=== PATIENT | female | born 1980 | race Hispanic/Latino ===

== ENCOUNTER 2017-12-05 01:48 | Emergency (ER) | payer SELFPAY ==
[2017-12-05 01:54] VITALS: BP 108/74; PULSE 98; TEMP 98.1; BMI 18.8
[2017-12-05 01:58] VITALS: RESP 18; O2SAT 97
--- NOTE | 2017-12-05 02:19 | ED PDOC ---
Arrival/HPI - General Chief Complaint: ENT Problem Time Seen by Provider: 12/05/17 01:52 Historian: Patient - History of Present Illness Narrative History of Present Illness (Text): 12/05/17 02:00 Yoly Narayanan is a 36 year old female, who presents to the emergency department complaining of injury and pain to her nose since prior to arrival. Patient reports she got hit in the nose with a door and notes it is swollen. No other complaints were made. Time/Duration: Prior to Arrival Symptom Onset: Sudden Symptom Course: Unchanged Activities at Onset: Light Past Medical History - Provider Review Nursing Documentation Reviewed: Yes - Cardiac Hx Cardiac Disorders: No - Pulmonary Hx Respiratory Disorders: No - Neurological Hx Neurological Disorder: No - HEENT Hx HEENT Disorder: No - Renal Hx Renal Disorder: No - Endocrine/Metabolic Hx Endocrine Disorders: No - Hematological/Oncological Hx Blood Disorders: No - Integumentary Hx Dermatological Disorder: No - Gastrointestinal Hx Gastrointestinal Disorders: No - Genitourinary/Gynecological Hx Genitourinary Disorders: No - Psychiatric Hx Psychophysiologic Disorder: No Hx Substance Use: No - Surgical History Hx Section: Yes (2009) - Suicidal Assessment Feels Threatened In Home Enviroment: No Family/Social History - Physician Review Nursing Documentation Reviewed: Yes Family/Social History: Unknown Family HX Smoking Status: Heavy Smoker > 10 Cigarettes Daily Hx Alcohol Use: Yes Hx Substance Use: No Allergies/Home Meds Allergies/Adverse Reactions: Allergies No Known Allergies Allergy (Verified 12/05/17 01:54) Home Medications: Home Meds Medication Instructions Recorded Confirmed ALPRAZolam [Xanax] 1 mg PO PRN PRN 12/05/17 12/05/17 Dextroamphetamine/Amphetamine 30 mg PO DAILY 12/05/17 12/05/17 [Adderall 30 mg Tablet] Review of Systems - Physician Review All systems were reviewed & negative as marked: Yes - Review of Systems Constitutional: absent: Fevers ENT: Other (nose pain s/p getting hit with a door) Respiratory: absent: SOB Cardiovascular: absent: Chest Pain Physical Exam Vital Signs Reviewed: Yes Vital Signs Temp Pulse Resp BP Pulse Ox 12/05/17 01:55 98.1 F 98 H 18 108/74 97 12/05/17 01:53 98.1 F 98 H 20 108/74 96 Temperature: Afebrile Blood Pressure: Normal Pulse: Tachycardic Respiratory Rate: Normal Appearance: Positive for: Well-Appearing, Non-Toxic, Comfortable Pain Distress: None Mental Status: Positive for: Alert and Oriented X 3 - Systems Exam Head: Present: Atraumatic, Normocephalic Pupils: Present: PERRL Extroacular Muscles: Present: EOMI Conjunctiva: Present: Normal Mouth: Present: Moist Mucous Membranes Nose (External): Present: Laceration (2mm laceration on bridge of nose), Other ( swelling on bridge of nose). No: Atraumatic Nose (Internal): No: No Active Bleeding, Epistaxis Cardiovascular: Present: Regular Rate and Rhythm, Normal S1, S2. No: Murmurs Upper Extremity: Present: Normal Inspection. No: Cyanosis, Edema Lower Extremity: Present: Normal Inspection. No: Edema Neurological: Present: GCS=15, CN II-XII Intact, Speech Normal Skin: Present: Warm, Dry, Normal Color. No: Rashes Psychiatric: Present: Alert, Oriented x 3, Normal Insight, Normal Concentration Medical Decision Making ED Course and Treatment: 12/05/17 Impression: 36 year old female with 2mm laceration and swelling on bridge of nose. Plan: -- Nasal bone x-ray -- Labs -- Zithromax -- Reassess and disposition Progress Notes: - Lab Interpretations I have reviewed the lab results: Yes - RAD Interpretation Radiology Orders: 12/05/17 02:30 NASAL BONES [RAD] Stat Oceanologist: Radiologist - Medication Orders Current Medication Orders: Discontinued Medications Acetaminophen (Tylenol 325mg Tab) 650 mg PO STAT STA Stop: 12/05/17 03:08 Last Admin: 12/05/17 03:14 Dose: 650 mg MAR Pain/Vitals Document 12/05/17 03:14 SS (Rec: 12/05/17 03:14 SS [id number]) Pain Reassessment Is This A Pain ReAssessment? No Sleep Is patient sleeping during reassessment? No Presence of Pain Presence of Pain No Azithromycin (Zithromax) 500 mg PO ONCE STA PRN Reason: Protocol Stop: 12/05/17 02:32 Last Admin: 12/05/17 02:48 Dose: 500 mg Procedure: Wound Repair - Consent Obtained Consent obtained: Verbal - Performed by Performed by: Attending Physician - Location Location:: Nose Shape:: Linear Dimensions Length cm: 4mm - Debris Debris:: None - Wound repair method Nasreen:: Tissue glue - Muscle repiar layer closed with Muscle repair layer closed with:: Wound well approximated - Patient tolerated procedure Patient Tolerated Procedure:: Well - Scribe Statement The provider has reviewed the documentation as recorded by the Scribe Juany Peralta Provider Scribe Attestation: All medical record entries made by the Scribe were at my direction and personally dictated by me. I have reviewed the chart and agree that the record accurately reflects my personal performance of the history, physical exam, medical decision making, and the department course for this patient. I have also personally directed, reviewed, and agree with the discharge instructions and disposition. Disposition/Present on Arrival - Present on Arrival Any Indicators Present on Arrival: No History of DVT/PE: No History of Uncontrolled Diabetes: No Urinary Catheter: No History of Decub. Ulcer: No History Surgical Site Infection Following: None - Disposition Have Diagnosis and Disposition been Completed?: Yes Diagnosis: Laceration of nose, Nasal fracture Disposition: HOME/ ROUTINE Disposition Time: 03:35 Condition: GOOD Discharge Instructions (ExitCare): Nasal Fracture (ED), Laceration (ED) Additional Instructions: follow up with ent Prescriptions: Benzonatate [Tessalon Perles] 100 mg PO TID #12 sgl Azithromycin [Zithromax] 250 mg PO DAILY #4 tab Referrals: Cm Major DO [Staff Provider] - Follow up with primary Forms: [employer] ([place])
--- NOTE | 2017-12-05 12:03 | RAD ---
PROCEDURE: Radiographs of Nasal Bones HISTORY: Trauma COMPARISON: None available. TECHNIQUE: Frontal and lateral radiographs of the nasal bones. FINDINGS: The nasal bones are intact. No acute fracture. The paranasal soft tissues are normal. IMPRESSION: No acute fracture.
== END 2017-12-05 03:35 | disposition home or self-care (01) ==
LOC: ED 01:48
DX: S01.21XA Laceration without foreign body of nose, initial encounter (principal); S02.2XXA Fracture of nasal bones, initial encounter for closed fracture; W22.8XXA Striking against or struck by other objects, initial encounter; Y92.9 Unspecified place or not applicable